=== PATIENT | male | born 1930 | race Caucasian/White ===

== ENCOUNTER 2017-02-07 08:15 | Inpatient (IN) | payer MEDICARE, BC ==
[~2017-02-07] VITALS: Ht 188 cm; Wt 76.2 kg
--- NOTE | ~2017-02-07 | CATH ---
Cardiac Diagnostic + PCI Report Demographics Patient Name BUD Johnston Gender Male Date of 1930 Age 86 year(s) Patient Number [id number] Date of Study 02/07/2017 Visit Number [id number] Room Number G6[address] [place] [id number] Ht 187.96 cm Wt 74 kg Referring Efstratiou Primary Physician Physician Brianna Medel MD Performing Efstratiou Secondary Physician Physician Brianna Medel MD Diagnostic Efstratiou Assisting Physician Physician Brianna Medel MD Interventional Efstratiou Physician Assistant To The Ceo Physician Brianna Medel MD Findings and Conclusions Diagnostic Findings and Conclusion 3 vessel diffuse CAD without involvement of the left main or proximal LAD Culprit for AMI is 100% Ramus Diagnostic Recommendations PCI to Ramus, then to Diagonal Interventional Findings and Conclusion Successful SHELLIE to Ramus and Diagonal Interventional Recommendations DAPT indefinitely Staged PCI to OM and FFR of RCA and LAD Procedure Description The patient was brought to the diagnostic cardiac catheterization-EP laboratory in the fasting, non-sedated state. Informed consent was obtained in the written and verbal form after the risks and benefits were explained. The patient had no further questions and agreed to proceed. The planned puncture-incision site(s) were shaved and prepped with ChloraPrep and draped in the usual sterile manner. Conscious sedation, supplemental oxygen, and pain control medications were delivered by a registered nurse under physician guidance. Surface ECG rhythm, blood pressure measurement, and pulse oximetry were monitored throughout the procedure. Arterial access. The access site was infiltrated with lidocaine. The vessel was entered with the Seldinger technique. A sheath was advanced into the vessel and used for catheter placement. Selective left coronary angiography. A catheter was advanced into the left coronary vessel ostium under Fluoroscopic guidance. Contrast was injected by hand. Images were obtained in multiple projections. Selective right coronary angiography. A catheter was advanced into the right coronary vessel ostium under fluoroscopic guidance. Contrast was injected by hand. Images were obtained in multiple projections. Stent Placement: A guiding catheter was used to intubate the vessel. A 0.14 wire was used to cross the lesion. A Drug Eluting Stent was placed. Post placement angiograms were performed. Arterial artery hemostasis was achieved. The patient was transferred to a regular nursing floor via cart accompanied by a nurse. The patient left the laboratory in stable condition. Diagnostic Cath Status: Urgent Interventional Cath Status: Emergency Procedure Procedure Type Diagnostic procedure:Angiography:, Coronary Angios PCI procedure:Drug Eluting Coronary Stent:, Diagonal, Ramus Indications: NSTEMI. The procedure was explained in detail to the patient. Risks, complications and alternative treatments were reviewed. Written consent was obtained. Medications Reviewed with Patient prior to Procedure. Angiographic Findings Dominance: Right Cardiac Arteries and Lesion Findings LMCA: wnl LAD: Abnormal. Lesion on 1st Diag: Proximal subsection.95% stenosis 28 mm length reduced to 0%. Pre procedure MIKEL II flow was noted. Post Procedure MIKEL III flow was present. The guidewire cross was successful.A poor run off was present.The lesion was diagnosed as a high risk lesion. Devices used - Emerge Balloon 2.0 x 12. 4 inflation(s) to a max pressure of: 14 liliam. - Emerge Push Balloon 1.5 x 15. 1 inflation(s) to a max pressure of: 14 liliam. - Promus Premier 2.25 x 28 Stent. 2 inflation(s) to a max pressure of: 14 liliam. - NC Emerge Balloon 2.5 x 15. 2 inflation(s) to a max pressure of: 14 liliam. Lesion on Mid LAD: Mid subsection.60% stenosis . LCx: Abnormal. Lesion on 1st Ob Aura: Proximal subsection. Lesion on Prox CX: Proximal subsection.30% stenosis . Lesion on 1st Ob Aura: Proximal subsection.95% stenosis . RCA: Abnormal. Lesion on Prox RCA: Ostial.40% stenosis . Lesion on Mid RCA: Mid subsection.30% stenosis . Lesion on Dist RCA: Distal subsection.40% stenosis . Lesion on R PDA: Mid subsection.70% stenosis . Ramus: Abnormal. Lesion on Ramus: Proximal subsection.100% stenosis 16 mm length reduced to 0%. Pre procedure MIKEL 0 flow was noted. Post Procedure MIKEL III flow was present. The guidewire cross was successful.A poor run off was present.The lesion was diagnosed as a high risk lesion.Culprit lesion. Devices used - Whisper Wire .014 x 190. Number of passes: 1. - Emerge Balloon 2.0 x 12. 2 inflation(s) to a max pressure of: 14 liliam. - Promus Premier 2.5 x 16 Stent. 1 inflation(s) to a max pressure of: 14 liliam. - NC Emerge Balloon 3.0 x 8. 2 inflation(s) to a max pressure of: 14 liliam. Coronary Tree Procedure Data Procedure Date Date: 02/07/2017Start: 11:07 AMEnd: 12:23 PM Entry Locations - Retrograde Percutaneous access was performed through the Right Femoral artery (Primary location). A 6 Fr sheath was inserted. Hemostasis was successfully obtained using Angio-Seal STS PLUS ([place]). Closure Comments: deployed by Dr Galloway Procedure Medications Order and Administration + + + + + !Time !Medication !Dosage !Route ! + + + + + !02/07/2017 11:06 AM!Fentanyl !25 mcg !I.V. ! + + + + + 02/07/2017 11:18 AM!Heparin (ACC_3) !7000 units!I.V. bolus ! + + + + + 02/07/2017 11:25 AM!Heparin (ACC_3) !5000 units!I.V. bolus ! + + + + 02/07/2017 11:27 AM!Integrilin (ACC_7) !20 mg !I.C. ! + + + + + 02/07/2017 11:34 AM!Heparin (ACC_3) !2000 units!I.V. bolus ! + + + + + !02/07/2017 11:48 AM!Fentanyl !25 mcg !I.V. ! + + + + 02/07/2017 12:00 PM!Nitroglycerin !300 mcg !I.C. ! + + + + + 02/07/2017 12:03 PM!Fentanyl !25 mcg !I.V. ! + + + + + !02/07/2017 12:04 PM!Brilinta (Ticagrelor) (ACC_20)!180 mg !P.O. ! + + + + + !02/07/2017 12:08 PM!0.9% NaCl !300 ml !I.V. bolus ! + + + + + !02/07/2017 12:10 PM!Atropine !0.5 mg !I.V. ! + + + + + Devices Used - A6 Fr. BS JR 4 Diag. Catheterwas used for:Right coronary angiography. - A6 Fr. BS JL 3.5 Diag. Catheterwas used for:Left coronary angiography. - A6 Fr. XB 3.5 Guide Catheterwas used for:Right popliteal. Contrast Material - Isovue 719781 ml Fluoroscopy Time: Diagnostic: 17:30 minutes. Total: 17:30 minutes. Fluoroscopy Dose: Diagnostic: 2055 mGy. Total: 2055 mGy. Estimated Blood Loss: 30 ml. Additional [facility] PCI Information PCI Indication:PCI for high risk Non-STEMI or unstable angina. Medical History Allergies - No known allergies. Risk Factors The patient risk factors include:family history of premature CAD, last creatinine: 0.8 mg/dl and creatinine clearance: 71.94 ml/min. Admission Data Admission Date: 02/07/2017 Admission Time: 08:50 AM Insurance Payors: Medicare. Clinical Evaluation Leading to Procedure - The patient's CAD presentation was assessed as: Non-STEMI. - The patient's anginal syndrome during the past two weeks was assessed as: Class IV according to the Stateless Cardiovascular Society Classification System (CCS). Snapshots Hemodynamics Condition: Rest O2 Consumption: Estimated: 228.15Heart Rate: 73 bpm Pressures (mmHg) +-----+ + !Site !Pressure ! +-----+ + !AO !166/81 (119) ! +-----+ + !AO !156/84 (115) ! +-----+ + Shunts Oxygen Values O2 Capacity 167.28 O2 Consumption 228.15 Discharge Data Discharge Date: 02/09/2017 Hospital Status: Inpatient Signatures dtt: Tino Garcia dtd: 02/07/17 1107 Physician Self Edit
--- NOTE | ~2017-02-07 | ECHO ---
Transthoracic Echocardiography Report (TTE) Demographics Patient Name THIAGO FARRELL Date of Study 02/08/2017 Patient Number [id number] Visit Number [id number] Date of 1930 Room Number G6338 Gender Male Number Age 86 year(s) Referring Jose Reed Artificial Insemination Technician Bernadette Avery [facility], Physician Lizy TREVIZO RVT Physician Interpreting Efstrati Cooler Conveyor Loader Physician Brianna Medel MD Supervising Ordering [facility] MD/MLP Physician Brianna Medel MD Nurse Stress Political Reporter Conclusions Summary The estimated left ventricular ejection fraction is 55-60%. Diastolic assessment reveals Grade I diastolic dysfunction. Mild concentric left ventricular hypertrophy. Inferior, apical and lateral hypokinesis. The left ventricle is normal in size . Ascending aorta is mildly dilated at 3.6cm Procedure Type of Study TTE procedure:2D Echocardiogram. Procedure Date Date: 02/08/2017 Start: 08:18 AM Study Location: Inpatient Portable Technical Quality: Limited visualization Indications:Post PTCA. Appropriate Use Criteria: 9 Patient Status: Routine Rhythm: Sinus tachycardia HR: 85 bpm Allergies - No known allergies. M-Mode/2D Measurements LV Diastolic Dimension: 4.14 cm LV Systolic Dimension: 2.96 cm LV Septum Diastolic: 1.21 cm LV PW Diastolic: 1.13 cm AO Root Dimension: 2.7 cm Cardiac Output: 9.84 l/min AV Cusp Separation: 0.9 cm LA volume: 61 ml RV Base: 4.27 cm LVOT: 2.4 cm RV Mid: 3.55 cm LVOT VTI: 25.6 cm RV Length: 6.04 cm LV Stroke volume: 115.75 ml TDI-S': 15 cm/s Doppler Measurements AV Peak Velocity: 1.23 m/s MV Peak E-Wave: 0.85 m/s AV Peak Gradient: 6.05 mmHg MV Peak A-Wave: 1.19 m/s AV Mean Gradient: 5 mmHg MV E/A Ratio: 0.71 LVOT Peak Velocity: 1.25 m/s MV P1/2t: 63 msec PV Peak Velocity: 1.08 m/s E' Septal Velocity: 0.06 m/s PV Peak Gradient: 4.67 mmHg E' Lateral Velocity: 0.07 m/s A' Septal Velocity: 0.13 m/s MV E/E' Ratio: 7 A' Lateral Velocity: 0.11 m/s Findings Left Ventricle The estimated left ventricular ejection fraction is 55-60%. Diastolic assessment reveals Grade I diastolic dysfunction. Mild concentric left ventricular hypertrophy. Inferior, apical and lateral hypokinesis. The left ventricle is normal in size . Right Ventricle Normal right ventricle structure and function. Left Atrium The left atrium is mildly dilated by LA volume index measurement. Right Atrium Normal right atrial size. Mitral Valve Mild mitral regurgitation by color Doppler. Mild mitral annular calcification. Aortic Valve The aortic valve is mildly sclerotic. Tricuspid Valve The tricuspid valve is not well visualized. Pulmonic Valve The pulmonic valve is not well visualized. Pericardial Effusion No evidence of pericardial effusion. Miscellaneous Ascending aorta is mildly dilated at 3.6cm Pleural Effusion Pleural effusion present. Signature dtt: Tino Garcia dtd: 02/08/17 0818 Physician Self Edit
--- NOTE | ~2017-02-07 | HP ---
PATIENT'S NAME: THIAGO FARRELL [facility] AGE: 86 Y [address] ROOM: G6338 [place], [place] [address] LOCATION: GPCU ADMIT DATE: 02/07/2017 History & Physical DISCHARGE DATE: FAMILY PHYSICIAN: PHYSICIAN, UNKNOWN ATTENDING PHYSICIAN: Tino Garcia DATE OF SERVICE: HISTORY OF PRESENT ILLNESS: This is an 86-year-old male who initially presented to the [place] [facility] with complaints of burning epigastric pain. He had tried taking Prilosec at home without any relief from his symptoms noted. He was then found to have elevated cardiac enzymes, and plans were made to transfer the patient to [facility] for higher level of care by Dr. Garcia. He did ultimately have relief from his chest pain in transport with a sublingual nitroglycerin. He did have complaints of nausea in [place], but that was relieved with Zofran. The patient was then found to be having continual elevation of cardiac enzymes, so plan was made to emergently transfer him to the catheterization lab for a selective coronary angiography and possible percutaneous intervention. PAST MEDICAL HISTORY: Positive for compression fractures and chronic back pain as well as BPH and history of assumed TURP by the patient's description of having his prostate "worked on." Difficulty with stream and an assumed TURP due to the patient stating, "narrowing was surgically opened to help him urinate better." He had a hernia repair in 1997 and kyphoplasty in 2015 as well as a fusion of L4, L5, and S1 in October of 2016. He also has degenerative arthritis and does complain of intermittent palpitations at times. FAMILY HISTORY: The patient's father had a history of heart disease and had 2 separate heart surgeries. SOCIAL HISTORY: The patient denies ever using tobacco. He also denies alcohol or illicit drug use. HOME MEDICATIONS: 1. [place] 7.5/325 mg 1 tablet p.o. 4 times daily as needed for severe pain. 2. Prilosec 20 mg p.o. twice daily. 3. Ranitidine 150 mg p.o. twice daily. 4. Tramadol 50 mg p.o. twice daily as needed for pain. 5. Multivitamin with beta carotene one tablet p.o. daily in the evening. 6. Fish oil 1000 mg p.o. daily in the evening. PATIENT'S NAME: THIAGO FARRELL [facility] AGE: 86 Y [address] ROOM: G6338 [place], [place] [address] [facility] AD[facility] DATE: 02/07/2017 History & Physical DISCHARGE DATE: FAMILY PHYSICIAN: PHYSICIAN, UNKNOWN ATTENDING PHYSICIAN: Tino Garcia 7. Citracal Plus D one tablet p.o. daily in the evening. 8. Sodium chloride spray intranasally as needed for dry nose. MEDICATION ALLERGIES: No known medication allergies. REVIEW OF SYSTEMS: Pertinent positive review of systems listed in the HPI. All other review of systems evaluated and negative. DIAGNOSTICS: Cardiac enzymes upon arrival to [facility] showed a CPK of 365, CK-MB of 50.3, and a troponin-I of 7.43. A quick bedside echo showed no pericardial effusion and no pleural effusion. PHYSICAL EXAMINATION: VITAL SIGNS: Temperature 98.0, pulse 85, respirations 16, blood pressure 169/86, and O2 saturation 96% on 2 L nasal cannula. The patient weighs 74 kg. SKIN: Bec[place], warm, and dry. EYES: Sclerae are clear. No xanthelasma. ENT: Oral mucosa is pink and moist. NECK: No jugular venous distention. No carotid bruits. CHEST: Respirations are even and unlabored. LUNGS: Clear to auscultation. HEART: Regular rate and rhythm. Normal S1 and S2. No murmurs, rubs, or gallops. ABDOMEN: Soft and nontender. MUSCULOSKELETAL: Gait is normal. EXTREMITIES: Peripheral pulses palpable. No clubbing, cyanosis, or edema. PSYCHIATRIC: Alert and oriented. Mood and affect are appropriate. IMPRESSION AND PLAN: Per Dr. Garcia. 1. Acute non-ST elevated myocardial infarction. As of this dictation, he is currently status post a drug-eluting stent to his ramus and his diagonal. 2. Coronary artery disease. Heart catheterization found 3-vessel coronary artery disease, and plans will be made to have a further staged percutaneous intervention to his obtuse marginal as well as FFR of the right coronary artery and the left anterior descending. He is on aspirin, Brilinta, and statin. The patient is currently undergoing echocardiogram to fully evaluate ejection fraction as well as look for wall motion and valvular abnormalities. After evaluation of that echo is complete, we will start him on a beta roma as appropriate. 3. Chronic back pain secondary to compression fractures. We will continue his home medications for pain control. We will continue to monitor, PATIENT'S NAME: THIAGO FARRELL [facility] AGE: 86 Y [address] ROOM: [place] [address] [facility] AD[facility] DATE: 02/07/2017 History & Physical DISCHARGE DATE: FAMILY PHYSICIAN: PHYSICIAN, UNKNOWN ATTENDING PHYSICIAN: Tino Garcia evaluate, and treat as appropriate. Thank you for allowing [facility] to interact in the care of this patient. NENA PICKETT APRN FOR MD RANDALL CASTILLO/norris /[id number] D: [id number] T: [id number] HISTORY & PHYSICAL
--- NOTE | ~2017-02-07 | ECHO ---
Transthoracic Echocardiography Report (TTE) Demographics Patient Name THIAGO FARRELL Date of Study 02/07/2017 Patient Number [id number] Visit Number [id number] Date of 1930 Room Number G6338 Gender Male Number Age 86 year(s) Referring Jose Reed Plant Superintendent Bernadette Avery [facility], Physician Lizy TREVIZO RVT Physician Interpreting [employer] Economics Consultant Physician Brianna Medel MD Supervising Ordering MD/MLP Physician Nurse Stress Manager Video Conclusions Summary No evidence of pericardial effusion. No evidence of pleural effusion. Some loops were not saved for technical reasons Procedure Type of Study TTE procedure:Echo Limited w/o Contrast. Procedure Date Date: 02/07/2017 Start: 12:13 PM Study Location: Inpatient Portable Technical Quality: Fair Indications:Hypotension and Pericardial effusion. Additional Indications:possible effusion Hypotension post PCI Appropriate Use Criteria: 9 Patient Status: Routine Rhythm: Within normal limits Allergies - No known allergies. Findings Pericardial Effusion No evidence of pericardial effusion. Pleural Effusion No evidence of pleural effusion. Signature dtt: Tino Garcia dtd: 02/07/17 1213 Physician Self Edit
--- NOTE | ~2017-02-07 | ENPV ---
Vascular Lower Arterial Plethysmography Procedure Demographics Patient Name THIAGO FARRELL Date of Study 02/08/2017 Patient Number [id number] Gender Male Date of 1930 Age 86 Visit Number [id number] Height 74 Weight 163.14 Number Referring Efstratiou Panayotis Interpreting Efstratiou Panayotis Physician A Physician A Physician Ordering Efstratiou Panayotis Physician Interventional Cardiologist Physician A Screw Machine Hand Trinidad Abrams [facility], RVT Conclusions Summary Ankle brachial index on the right is 1.2 no significant arterial disease at rest. The toe brachial index on the right is 1.09 which is normal . Ankle brachial index on the left is 1.05 no significant arterial disease at rest. The toe brachial index on the left is 0.91 which is normal . Waveforms on the right leg are monophasic. Waveforms on the left leg are biphasic on the PTAs and multiphasic on the dorsalis pedis. Procedure Type of Study: Extremities Arteries:Lower Arterial Plethysmography, Ankle/Brachial Indicies. Indications for Study:Claudication. Appropriate Use Criteria:9 Allergies - No known allergies. Patient Status:Routine. Study Location:Inpatient Portable. Technical Quality:Adequate visualization. Risk Factors - The patient's last creatinine was 0.8 mg/dl. Velocities are measured in cm/s ; Diameters are measured in cm Pressures + ++--------+-----+----+--------+-----+ ! !!Right ! !Left! ! ! + ++--------+-----+----+--------+-----+ !Location !!Pressure!Ratio! !Pressure!Ratio! + ++--------+-----+----+--------+-----+ !Ankle PT !!153 !1.2 ! !134 !1.05 ! + ++--------+-----+----+--------+-----+ !DP !!144 !1.12 ! !112 !0.88 ! + ++--------+-----+----+--------+-----+ !Great Toe !!139 !1.09 ! !116 !0.91 ! + ++--------+-----+----+--------+-----+ - Brachial Pressure:Right: 128.Left:123. - DOROTEO:Right: 1.2.Left: 1.05. Plethysmographic Digit Evaluation +---------++--------+-----+ ++--------+-----+ + ! !!Right ! !Left !! ! ! ! +---------++--------+-----+ ++--------+-----+ + !Location !!Pressure!Ratio!PPG Wave Form !!Pressure!Ratio!PPG Wave Form ! +---------++--------+-----+ ++--------+-----+ + !Great Toe!!139 !1.09 ! !!116 !0.91 ! ! +---------++--------+-----+ ++--------+-----+ + Signature dtt: Tino Garcia dtd: 02/08/17912 Physician Self Edit
--- NOTE | ~2017-02-07 | DS ---
PATIENT'S NAME: THIAGO FARRELL [facility] AGE: 86 Y [address] ROOM: [id number] [place], [place] [address] LOCATION: GPCU ADMIT DATE: 02/07/2017 Discharge Summary DISCHARGE DATE: 02/09/2017 FAMILY PHYSICIAN: Physician, Unknown ATTENDING PHYSICIAN: Tino Garcia PRIMARY DISCHARGE DIAGNOSIS: Xeb-BT-ewppzxiy myocardial infarction. SECONDARY DISCHARGE DIAGNOSES: 1. Coronary artery disease. 2. Chronic back pain. 3. Ejection fraction 55% to 60%. PROCEDURES: Selective coronary angiography and percutaneous intervention with drug-eluting stent placement to the ramus and the diagonal. HOSPITAL COURSE: This is an 86-year-old male, who initially presented to the [facility] with complaints of burning epigastric pain. He was found to have elevated cardiac enzymes and plan was made to transfer him to [facility] for higher level of care and evaluation by Dr. Garcia. Please see history and physical for full details of admission. The patient underwent a selective coronary angiography and percutaneous intervention with drug-eluting stent placement to his ramus and his diagonal coronary artery through his right femoral artery. During the cath, he was found to have a total of 3-vessel disease and plans were made at that time to prepare him for a staged percutaneous intervention also to his OM as well as an FFR of his RCA and LAD in the future. Postprocedure, he was transferred to the progressive care unit for continued monitoring of his procedure site as well as postprocedure vital signs and EKG monitoring. On 02/08/2017, the patient's right groin was tender to palpation, but had no presence of hematoma and had normal circulation movement and sensation. He was started on a beta- roma once his echocardiogram was completed. On 02/09/2017, his beta- roma was increased, and he was also started on lisinopril for hypertension and tachycardia. He had no complaints throughout the day and his afternoon vital signs were much improved, so he was found to be in stable condition to be discharged to home. DIAGNOSTICS: Cardiac enzyme evaluation upon admission showed a CPK of 365, CK- MB of 50.3, and a troponin I of 7.43. Cardiac enzymes peaked with a CPK of 410, CK-MB of 57.9, and troponin I of 28.4. Cardiac enzymes upon discharge were CPK 182, CK-MB of 17.8, and troponin I of 7.51. Discharge renal function shows a BUN and creatinine of 19 and 0.8 respectively with a GFR of greater than 60. Lipid evaluation shows a total cholesterol of 132, triglycerides 50, HDL of 46, and LDL of 76. The patient underwent an ankle-brachial index on 02/08/2017 for complaints of claudication. Results were of normal flow. PATIENT'S NAME: THIAGO FARRELL [facility] AGE: 86 Y [address] ROOM: [address] [place], [place] [address] LOCATION: GPCU ADMIT DATE: 02/07/2017 Discharge Summary DISCHARGE DATE: 02/09/2017 FAMILY PHYSICIAN: , Tianna ATTENDING PHYSICIAN: Tino Garcia Please see report for full details. The patient also underwent an echocardiogram on 02/08/2017, which showed an estimated left ventricular ejection fraction of 55% to 60%. He had a grade 1 diastolic dysfunction. There was mild concentric left ventricular hypertrophy as well as inferior apical and lateral hypokinesis. 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 DISCHARGE ORDERS: The patient is discharged to home with a cardiac diet of low fat, low salt, and low cholesterol. He does have a 10-pound weight restriction as well as normal post-catheterization restrictions in accordance to activity and bathing. He is to follow up with his primary care provider in 1 week. He is then to be scheduled for a staged percutaneous intervention to his OM as well as an FFR of the LAD and RCA in 10 to 14 days. DISCHARGE MEDICATIONS: 1. Aspirin 81 mg p.o. daily. 2. Lipitor 80 mg p.o. daily. 3. Citracal plus D 1 tablet p.o. daily at bedtime. 4. Coreg 6.25 mg p.o. twice daily with meals. 5. Prinivil 2.5 mg p.o. daily. 6. Multivitamin with beta carotene 1 tablet p.o. daily at bedtime. 7. Fish oil 1000 mg p.o. daily at bedtime. 8. Prilosec 20 mg p.o. twice daily. 9. Brilinta 90 mg p.o. twice daily. The patient was given samples of this medication to safely continue his medication adherence until he was able to get to the pharmacy upon discharge. 10. [place] 7.5/325 mg p.o. 1 tablet every 4 hours as needed for pain. 11. Ranitidine 150 mg p.o. twice daily. 12. Ultram 50 mg p.o. twice daily as needed for pain. 13. Sodium chloride nasal spray as needed for dry nose. DISPOSITION: The patient is discharged to home in stable condition. His discharge instructions including activity and diet restrictions as well as followup and planned future procedures were given to the patient as well as his family members. Extensive teaching was performed about discharge as well as concerns about his underlying cardiac health. All questions were answered by Nena Bright APRN, prior to discharge, and they have no further questions upon discharge. He plans to follow his instructions as prescribed. NENA BRIGHT APRN FOR MD RANDALL CASTILLO/norris PATIENT'S NAME: THIAGO FARRELL [facility] AGE: 86 Y [address] ROOM: [place] [address] [facility] ADMIT DATE: 02/07/2017 Discharge Summary DISCHARGE DATE: 02/09/2017 FAMILY PHYSICIAN: Physician, Unknown ATTENDING PHYSICIAN: Tino Garcia /[id number] d: 02/18/17 0439 t: 02/25/17 1048, DISCHARGE SUMMARY
[2017-02-07] MEDS ORDERED: PRILOSEC20 MG PO (09:24)
[2017-02-07] MEDS ORDERED: NORCO 7.5-3251 EACH PO (09:24)
[2017-02-07] MEDS ORDERED: ACID CONTROL150 MG PO (09:24)
[2017-02-07] MEDS ORDERED: THERA-VITE W/ B1 TAB PO (09:25)
[2017-02-07] MEDS ORDERED: ULTRAM50 MG PO (09:25)
[2017-02-07] MEDS ORDERED: OCEAN NASAL) (A44 ML NOSE (09:26)
[2017-02-07] MEDS ORDERED: CITRACAL+D(315M1 TAB PO (09:26)
[2017-02-07] MEDS ORDERED: FISH OIL 1,001000 MG PO (09:26)
--- NOTE | 2017-02-07 09:50 | NUR ---
Admission Note: Patient reports that he has been having epigastric pain for about a week and was taking prilosec at home. This morning about [id number] the pain was a lot worse so the patient went to the [facility] in [place]. It was noted that his troponins were elevated there. No EKG changes. The patient's epigastric pain was relieved by 1 sublingual nitroglycerin. Also was nauseated at this time, but was given zofran. Patient was transferred to [facility], arriving at 0845 per EMS. Vital signs stable on admission: HR 85, RR 16, O2 saturation 96% on 2L (per ACS protocol), BP 169/86, temperature 98.0F, and denies pain or shortness of breath. Patient is A/O x 3. States that he usually uses a walking stick to get around at home. Lung sounds clear. Bowel sounds active. States that he has difficulty starting stream when urinating, but states he has for a long time and he used to see Dr. Weinstein. EKG and cardiac enzymes done upon arrival. Dr. Garcia to see the patient and evaluate. Scooter RN 02/07/17
--- NOTE | 2017-02-07 10:04 | NUR ---
85 YR OLD MALE WHO WAS HAVING CP AT HOME AND WENT TO [facility]. CP AT [facility] CONTINUED AND LABS AND EKG DONE. PATIENT SENT TO PCU FROM [place] [facility]BULANCE. EKG DONE HERE AND LABS DRAWN. IV TO LFT HAND NS.
--- NOTE | 2017-02-07 16:53 | NUR ---
Significant Event: Patient A/O x 3. Currently on bedrest due to right groin bleeding after heart catheterization. Patient had 2 stents placed. Held manual pressure, and then applied sandbag for about 1.5 hours. Patient sat up too far and started to bleed again. Applied fem stop at 1505 and slowly releasing now. VSS on 2L (per ACS protocol). SBP 110-169. HR 70-80's. Gave 1.5 tab [place] at 1607 for lower back pain. Denies flank pain though. Voids per urinal. Denies any other needs throughout the day. L)wrist PIV with NS infusing at 100 ml/hr x 1500 ml. To complete hanging bag and hang another 500 cc, and then saline lock. Follow up: Continue as per plan of care. Continue to monitor for bleeding at groin site. Patient to be up ambulating once groin stabilizes. Plan to discharge Thursday.
--- NOTE | 2017-02-08 05:02 | NUR ---
Significant events: Pt A/Ox3. VSS. [place] x1 for back/shoulder pain. Fem-stop removed from groin at 2029. Groin site CDI, small amount of ecchymosis. Up SBA. No chest pain. Saline locked. Slept comfortably most of shift.
[2017-02-08 07:18] LABS: ALBUMIN 2.6 gm/dL (3.5-5.0); ALK PHOS 69 IU/L (33-138); ALT 22 IU/L (12-78); AST 53 IU/L (10-40); BLOOD UREA NITROGEN 19 mg/dL (6-24); CALCIUM 8.1 mg/dL (8.5-10.5); CHLORIDE 107 mMol/L (96-110); CO2 28 mMol/L (22-32); CREATININE 0.8 mg/dL (0.6-1.3); ESTIMATED GFR (MDRD EQUATION) > 60; SODIUM 142 mMol/L (135-145); TOTAL BILIRUBIN 0.7 mg/dL (0.0-1.5); TOTAL PROTEIN 5.8 g/dL (6.0-8.4)
--- NOTE | 2017-02-08 17:09 | NUR ---
Significant Event: Patient A/O x 3. Up with minimal assist and independent in room. VSS on RA. Denies any chest pain throughout the day. [place] given x 1 this morning for shoulder/back pain, and now that patient has been up moving, states pain is a lot better. Groin site remains unchanged. Site soft and ecchymotic. Dressing C/D/I. L)wrist PIV SL. Tolerated ambulating in hallways well. Denies any other needs throughout the day. Started on Coreg. SBP 116-131 and HR's 70-80's. Follow up: Continue as per plan of care. Plan on discharge tomorrow.
--- NOTE | 2017-02-09 04:30 | NUR ---
Significant events: Pt A/Ox3. VSS. No complaints of pain. Up SBA. Ambulated in hallway x1. [place] at for generalized aches. R) groin eccymotic, no oozing. On RA. To go home today.
--- NOTE | 2017-02-09 11:45 | NUR ---
Introduced self and role of care management to patient. Patient lives in [place] with his . He hopes to go home today. Says and son will come pick him up. He does not use a cane or walker at home but does use a walker stick when goes on walks due to the neighbor's dog. Denies discharge needs at this time. Will follow.
[2017-02-09] MEDS ORDERED: COREG6.25 MG PO (13:33)
[2017-02-09] MEDS ORDERED: ASPIRIN (CHILDR81 MG PO (13:34)
[2017-02-09] MEDS ORDERED: LIPITOR80 MG PO (13:35)
[2017-02-09] MEDS ORDERED: ZESTRIL2.5 MG PO (13:37)
[2017-02-09] MEDS ORDERED: BRILINTA90 MG PO (13:40)
== END 2017-02-09 15:20 | disposition disaster alternative care site (69) | DRG 247 ==
LOC: GPCU 08:50
PROVIDERS: ADMIT Internal Medicine Cardiovascular Disease
PROC: 4A023N7 Measurement of Cardiac Sampling and Pressure, Left Heart, Percutaneous Approach (ICD-10-PCS; principal; 2017-02-07)
PROC: 027145Z Dilation of Coronary Artery, Two Arteries with Two Drug-eluting Intraluminal Devices, Percutaneous Endoscopic Approach (ICD-10-PCS; 2017-02-07)
PROC: B211YZZ Fluoroscopy of Multiple Coronary Arteries using Other Contrast (ICD-10-PCS; 2017-02-07)
DX: I21.4 Non-ST elevation (NSTEMI) myocardial infarction (principal); I25.10 Atherosclerotic heart disease of native coronary artery without angina pectoris
CPT/HCPCS: C1725; C1760; C1769; C1874; C1887; C1894; C9600; J1327; J1644; J2250; J3010; J7030

== ENCOUNTER 2017-02-26 06:00 | Outpatient (CLI) | payer MEDICARE, BC ==
[~2017-02-26] VITALS: Ht 190.5 cm; Wt 74.0 kg
--- NOTE | ~2017-02-26 | CATH ---
Cardiac Diagnostic + PCI Report Demographics Patient Name BUD Johnston Gender Male Date of 1930 Age 86 year(s) Patient Number [id number] Date of Study 02/26/2017 Visit Number [id number] Room Number G[address] [place] [id number] Ht 190.5 cm Wt 72.4 kg Referring Tony Copeland Primary Physician Physician Performing Efstratiou Secondary Physician Physician Brianna Medel MD Diagnostic Efstratiou Assisting Physician Physician Brianna Medel MD Interventional Efstratiou Physician Bearing Ring Assembler Physician Brianna Medel MD Findings and Conclusions Diagnostic Findings and Conclusion 90% Ostial OM. Diagnostic Recommendations PCI to OM. FFR to LAD and RCA. Interventional Findings and Conclusion Successful SHELLIE to OM. Non ischemic FFR in LAD and RCA Interventional Recommendations Medical management for LAD, RCA. Continue DAPT Procedure Description The patient was brought to the diagnostic cardiac catheterization-EP laboratory in the fasting, non-sedated state. Informed consent was obtained in the written and verbal form after the risks and benefits were explained. The patient had no further questions and agreed to proceed. The planned puncture-incision site(s) were shaved and prepped with ChloraPrep and draped in the usual sterile manner. Pain control medications were delivered by a registered nurse under physician guidance. Surface ECG rhythm, blood pressure measurement, and pulse oximetry were monitored throughout the procedure. Arterial access. The access site was infiltrated with lidocaine. The vessel was entered with the Seldinger technique. A sheath was advanced into the vessel and used for catheter placement. Selective left coronary angiography. A catheter was advanced into the left coronary vessel ostium under Fluoroscopic guidance. Contrast was injected by hand. Images were obtained in multiple projections. Selective right coronary angiography. A catheter was advanced into the right coronary vessel ostium under fluoroscopic guidance. Contrast was injected by hand. Images were obtained in multiple projections. Arterial artery hemostasis was achieved. Angioplasty and Stent Placement: A guiding catheter was used to intubate the vessel. A 0.14 wire was then used to cross the lesion. A balloon catheter was placed across the lesion and inflated. The balloon catheter was then removed. A Drug Eluting Stent was placed and inflated. Post placement angiograms were performed. FFR measurement was performed on LAD. The vessel was entered with a guiding catheter. The FFR wire was normalized and then advanced across the lesion. Maximum hyperemia was achieved using adenosine. FFR measurement was performed on RCA. The vessel was entered with a guiding catheter. The FFR wire was normalized and then advanced across the lesion. Maximum hyperemia was achieved using adenosine. The patient was transferred to a regular nursing floor via cart accompanied by a nurse. The patient left the laboratory in stable condition. Diagnostic Cath Status: Elective Interventional Cath Status: Elective Procedure Procedure Type Diagnostic procedure:Angiography:, Coronary Angios PCI procedure:Drug Eluting Coronary Stent:, OM, Additional Imaging:, FFR/iFR:, Initial Vessel, Add'l Vessel Indications: CAD. The procedure was explained in detail to the patient. Risks, complications and alternative treatments were reviewed. Written consent was obtained. Medications Reviewed with Patient prior to Procedure. Angiographic Findings Dominance: Right Cardiac Arteries and Lesion Findings LMCA: Normal (0% Stenosis). LAD: There is a previous stent on 1st Diag Proximal subsection showing wide patency. Lesion on Mid LAD: Mid subsection.60% stenosis . FFR + + + + !FFR !Stage/Medication !Dosage ! + + + + !0.87 !Adenosine (I.V) !140 ! + + + + Devices used - Verrata Pressure Wire. Number of passes: 1. LCx: Lesion on 1st Ob Aura: Ostial.95% stenosis 28 mm length reduced to 0%. Pre procedure MIKEL III flow was noted. Post Procedure MIKEL III flow was present. The guidewire cross was successful.The lesion was diagnosed as a high risk lesion.Culprit lesion.Bifurcation lesion. Treatment results:Interventional treatment was successful. Devices used - Whisper Wire .014 x 190. Number of passes: 1. - Emerge Balloon 2.0 x 12. 2 inflation(s) to a max pressure of: 14 liliam. - Promus Premier 2.25 x 28 Stent. 1 inflation(s) to a max pressure of: 11 liliam. - NC Emerge Balloon 2.5 x 12. 2 inflation(s) to a max pressure of: 18 liliam. RCA: Lesion on Prox RCA: Ostial.70% stenosis . FFR + + + + !FFR !Stage/Medication !Dosage ! + + + + !0.91 !Adenosine (I.V) !140 ! + + + + Devices used - Verrata Pressure Wire. Number of passes: 1. There is a previous stent on Ramus Proximal subsection showing wide patency. Coronary Tree Procedure Data Procedure Date Date: 02/26/2017Start: 09:06 AMEnd: 10:45 AM Entry Locations - Retrograde Percutaneous access was performed through the Right Radial artery (Primary location). A 6 Fr sheath was inserted. Hemostasis was successfully obtained using Mechanical Compression. Closure Comments: R band with 15 cc air deployed by Bethany Florence RTSilvina. Procedure Medications Order and Administration + + + +--------+ !Time !Medication !Dosage !Route ! + + + +--------+ !02/26/2017 !0.9% NaCl !150 ml !I.V. ! !09:00 AM ! ! !drip ! + + + +--------+ !02/26/2017 !Fentanyl !25 mcg !I.V. ! !09:05 AM ! ! ! ! + + + +--------+ 02/26/2017 !PAE Radial Cocktail: Heparin 5000 ! !I.A. ! !09:08 AM !units, Nitroglycerin 200mcg, Verapamil! ! ! ! !3 mg (ACC_3) ! ! ! + + + +--------+ !02/26/2017 !Heparin (ACC_3) !3000 units !I.V. ! !09:09 AM ! ! ! ! + + + +--------+ 02/26/2017 !0.9% NaCl !300 ml !I.V. ! !09:11 AM ! ! !bolus ! + + + +--------+ !02/26/2017 !Chang-Synephrine (Phenylephrine) !100 mcg !I.V. ! !09:13 AM ! ! ! ! + + + +--------+ !02/26/2017 !Nitroglycerin !100 mcg !I.C. ! !09:33 AM ! ! ! ! + + + +--------+ !02/26/2017 !Nitroglycerin !100 mcg !I.C. ! !09:34 AM ! ! ! ! + + + +--------+ 02/26/2017 !Heparin (ACC_3) !2000 units !I.V. ! !09:55 AM ! ! ! ! + + + +--------+ !02/26/2017 !Adenosine (IV) !140 !I.V. ! !10:18 AM ! !mcg/kg/min ! ! + + + +--------+ !02/26/2017 !Adenosine (IV) ! !I.V. ! !10:22 AM ! ! ! ! + + + +--------+ !02/26/2017 !Adenosine (IV) !140 !I.V. ! !10:30 AM ! !mcg/kg/min ! ! + + + +--------+ !02/26/2017 !Adenosine (IV) ! !I.V. ! !10:34 AM ! ! ! ! + + + +--------+ Devices Used - A6 Fr. XBLAD 3.5 Guide Catheterwas used for:LAD Intervention. - A6 Fr. JR4 Guide Catheterwas used for:Fractional Flow [place] measurments. Contrast Material - Isovue [id number] ml Fluoroscopy Time: Diagnostic: 17:24 minutes. Total: 17:24 minutes. Fluoroscopy Dose: Diagnostic: 1216 mGy. Total: 1216 mGy. Estimated Blood Loss: 30 ml. Additional [facility] PCI Information PCI Indication:PCI for high risk Non-STEMI or unstable angina. Medical History Performed Procedures and Imaging Results - No [facility] stress or imaging studies were performed. Allergies - No known allergies. Risk Factors The patient risk factors include:prior PCI on 02/07/2017;treated hypertension, last creatinine: 1 mg/dl, creatinine clearance: 56.31 ml/min, dyslipidemia and prior ID . Admission Data Admission Date: 02/26/2017 Admission Time: 06:00 AM Admit Source: Other Insurance Payors: Medicare. Admission Medications + +------+------+ + + + + !Medication !Dosage!Times !Last !Last !Administered !Comments ! ! ! !Per !Delivery !Delivery ! ! ! ! ! !Day !Date !Time ! ! ! + +------+------+ + + + + !Aspirin ! ! ! ! !Yes ! ! !(any) ! ! ! ! ! ! ! + +------+------+ + + + + !DARYN ! ! ! ! !Yes ! ! !Inhibitor ! ! ! ! ! ! ! !(any) ! ! ! ! ! ! ! + +------+------+ + + + + !Statin (any)! ! ! ! !Yes ! ! + +------+------+ + + + + !Beta Silva! ! ! ! !Yes ! ! !(any) ! ! ! ! ! ! ! + +------+------+ + + + + !Ticagrelor ! ! ! ! !Yes ! ! + +------+------+ + + + + Clinical Evaluation Leading to Procedure - There were no CAD presentation symptoms. - There were no anginal symptoms. Anti-anginal medications were prescribed during the past two weeks. The medication is: Beta Blockers. Snapshots Hemodynamics Condition: Rest O2 Consumption: Estimated: 217.62Heart Rate: 59 bpm Pressures (mmHg) +-----+ + !Site !Pressure ! +-----+ + !AO !75/41 (55) ! +-----+ + !AO !74/45 (56) ! +-----+ + !AO !71/44 (53) ! +-----+ + !AO !92/52 (69) ! +-----+ + !AO !112/59 (82) ! +-----+ + Shunts Oxygen Values O2 Capacity 161.84 O2 Consumption 217.62 Signatures dtt: Tino Garcia dtd: 02/26/17 0906 Physician Self Edit
[~2017-02-26 06:00] MED LIST: ACID CONTROL150 MG PO; ASPIRIN (CHILDR81 MG PO; BRILINTA90 MG PO; CITRACAL+D(315M1 TAB PO; COREG6.25 MG PO; FISH OIL 1,001000 MG PO; LIPITOR80 MG PO; NORCO 7.5-3251 EACH PO; OCEAN NASAL) (A44 ML NOSE; PRILOSEC20 MG PO; THERA-VITE W/ B1 TAB PO; ULTRAM50 MG PO; ZESTRIL2.5 MG PO
[2017-02-26 06:43] LABS: BASOPHIL # 0.1 K/uL (0.0-0.2); EOSINOPHIL # 0.3 K/uL (0.0-0.5); EOSINOPHIL % 4.6 %; HEMATOCRIT 36.9 % (33.0-50.0); HEMOGLOBIN 11.9 g/dL (11.0-16.0); IMMATURE GRANULOCYTE % 0.2 %; LYMPHOCYTE # 0.9 K/uL (0.8-4.0); LYMPHOCYTE % 15.6 %; MCH 29.2 pg (27.0-34.0); MCHC 32.2 gm/dL (32.0-36.5); MCV 90.4 fl (83.0-98.0); MONOCYTE # 0.8 K/uL (0.0-1.0); MONOCYTE % 13.2 %; MPV 9.5 fl (9.4-12.4); NEUTROPHIL % 65.4 %; NRBC % 0 /100WBC (0-0.00); RBC 4.08 M/uL (3.50-5.50); RDW-CV 14.3 % (11.9-14.6)
[2017-02-26 06:52] LABS: INR - (THERAPEUTIC) 1.08 (0.92-1.07); PROTIME 11.4 SECONDS (9.8-11.4); PTT 32 SECONDS (25-32)
[2017-02-26 07:00] LABS: ALBUMIN 3.4 gm/dL (3.5-5.0); ALK PHOS 117 IU/L (33-138); ALT 46 IU/L (12-78); BLOOD UREA NITROGEN 20 mg/dL (6-24); CALCIUM 8.3 mg/dL (8.5-10.5); CHLORIDE 107 mMol/L (96-110); CO2 25 mMol/L (22-32); SODIUM 139 mMol/L (135-145); TOTAL BILIRUBIN 0.7 mg/dL (0.0-1.5)
[2017-02-26 07:03] LABS: ANION GAP 11.6 (10.0-19.0); AST 41 IU/L (10-40); ESTIMATED GFR (MDRD EQUATION) > 60; POTASSIUM 4.6 mMol/L (3.7-5.1)
[2017-02-26 07:32] LABS: PLATELET COUNT 257 K/uL (150-450)
[2017-02-26 12:04] LABS: CPK 58 IU/L (35-332)
--- NOTE | 2017-02-26 16:33 | NUR ---
Significant Event: Alert and oriented X 3. Room Air. SBP 110's and 130's. HR 50's and 60's. Peripheral IV X 2 to left anterior forearm. Both flush well with good blood return. Normal saline infusing at 100 ml/hr lower IV. Heart cath, stent to OM. Entered through right radial. Radial compression band with 13 ml of air. Air removed, 2 ml each time, beginning at 1305. Bandaid and coban applied at 1535. Insertion site ecchymotic, no oozing. Up with SBA. Pleasant and cooperative with cares. Follow up:
--- NOTE | 2017-02-27 04:55 | NUR ---
Significant Event: A/O, SBP 106-128, HR 50-60s, RA, no chest pain, R) radial site ecchymotic, csm wnl, SBA to bathroom, Ultram at hs for R) foot/toe pain Follow up: home today
[2017-02-27 05:49] LABS: ALBUMIN 2.7 gm/dL (3.5-5.0); ALK PHOS 93 IU/L (33-138); ALT 50 IU/L (12-78); ANION GAP 10.3 (10.0-19.0); AST 43 IU/L (10-40); BLOOD UREA NITROGEN 17 mg/dL (6-24); CALCIUM 8.1 mg/dL (8.5-10.5); CHLORIDE 112 mMol/L (96-110); CO2 24 mMol/L (22-32); CREATININE 0.8 mg/dL (0.6-1.3); ESTIMATED GFR (MDRD EQUATION) > 60; POTASSIUM 4.3 mMol/L (3.7-5.1); SODIUM 142 mMol/L (135-145); TOTAL BILIRUBIN 0.5 mg/dL (0.0-1.5); TOTAL PROTEIN 5.6 g/dL (6.0-8.4)
--- NOTE | 2017-02-27 11:18 | NUR ---
reviewed student charting and on the floor from [id number] clint [id number]
== END 2017-02-27 21:24 | disposition disaster alternative care site (69) ==
LOC: GPCU 06:00 → GPOC 06:00 → GCAT 06:00 → GPCU 09:28 → GCAT 02-27 21:24
PROVIDERS: Internal Medicine Cardiovascular Disease; Nurse Practitioner
DX: I21.4 Non-ST elevation (NSTEMI) myocardial infarction (principal); I25.10 Atherosclerotic heart disease of native coronary artery without angina pectoris; I10 Essential (primary) hypertension; I47.1 Supraventricular tachycardia; G89.29 Other chronic pain; E78.5 Hyperlipidemia, unspecified; M54.9 Dorsalgia, unspecified; M19.90 Unspecified osteoarthritis, unspecified site; Z95.5 Presence of coronary angioplasty implant and graft; Z79.82 Long term (current) use of aspirin; Z79.891 Long term (current) use of opiate analgesic; Z79.02 Long term (current) use of antithrombotics/antiplatelets; Z79.899 Other long term (current) drug therapy; Z98.1 Arthrodesis status
CPT/HCPCS: C1725; C1769; C1874; C1887; C1894; C9600; J0153; J0461; J1644; J2370; J3010; J7030

== ENCOUNTER → 2017-03-16 | Outpatient (CLI) | payer MEDICARE, BC ==
[2017-03-16 14:13] LABS: ANION GAP 12.4 (10.0-19.0); BLOOD UREA NITROGEN 20 mg/dL (6-24); CALCIUM 8.3 mg/dL (8.5-10.5); CHLORIDE 108 mMol/L (96-110); CO2 24 mMol/L (22-32); CREATININE 0.9 mg/dL (0.6-1.3); ESTIMATED GFR (MDRD EQUATION) > 60; POTASSIUM 4.4 mMol/L (3.7-5.1); SODIUM 140 mMol/L (135-145)
== END ==
LOC: LNHI 13:02
PROVIDERS: Internal Medicine Cardiovascular Disease
DX: I25.10 Atherosclerotic heart disease of native coronary artery without angina pectoris (principal); E78.2 Mixed hyperlipidemia; I10 Essential (primary) hypertension